=== PATIENT | male | born 2000 | race Caucasian/White ===

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

== ENCOUNTER 2023-03-30 13:46 | Emergency (ER) | payer OTHER ==
[~2023-03-30] VITALS: Ht 188 cm; Wt 69.4 kg
[2023-03-30] MEDS ORDERED: ACID REDUCER20 M1 (14:20)
[2023-03-30] MEDS ORDERED: [UNRECOGNIZED DRUG - OTHER] (14:20)
[2023-03-30] MEDS ORDERED: PEPCID AC20 MG (14:21)
== END 2023-03-30 19:18 | disposition home or self-care (01) ==
LOC: ER 13:46
PROVIDERS: Nurse Practitioner Family
DX: J06.9 Acute upper respiratory infection, unspecified (principal); Z20.822 Contact with and (suspected) exposure to COVID-19

== ENCOUNTER → 2024-11-07 | Emergency (ER) | payer OTHER ==
[~2024-11-07] VITALS: Ht 188 cm; Wt 77.1 kg
[~2024-11-07] MED LIST: ACID REDUCER20 M1; PEPCID AC20 MG; [UNRECOGNIZED DRUG - OTHER]
== END | disposition left against medical advice (07) ==
LOC: ER 04:42
DX: Z53.21 Procedure and treatment not carried out due to patient leaving prior to being seen by health care provider (principal)